=== PATIENT | female | born 1975 | race Caucasian/White ===

== ENCOUNTER → 2020-07-12 | Outpatient (CLI) | payer BC | END | disposition home or self-care (01) | LOC: RAH 13:34 | PROVIDERS: ATTEND Internal Medicine | DX: K57.92 Diverticulitis of intestine, part unspecified, without perforation or abscess without bleeding (principal); R10.32 Left lower quadrant pain | CPT/HCPCS: 74176 ==

== ENCOUNTER → 2024-01-28 | Outpatient (CLI) | payer BC ==
--- NOTE | 2024-01-28 15:37 | HMCIMG ---
US THYROID/NECK HISTORY: Hypothyroidism COMPARISON: None TECHNIQUE: Thyroid ultrasound study was performed. FINDINGS: Right thyroid lobe measures 4.1 x 1.5 x 0.8 cm. Left thyroid lobe measures 3.7 x 1.1 x 0 9 cm. No discrete thyroid nodule is seen. IMPRESSION: 1. No discrete thyroid nodule is seen.
== END | disposition home or self-care (01) ==
LOC: RAH 14:56
PROVIDERS: ATTEND Internal Medicine
DX: E03.9 Hypothyroidism, unspecified (principal)
CPT/HCPCS: 76536